=== PATIENT | male | born 1960 | race Caucasian/White ===

== ENCOUNTER 2022-01-07 01:51 | Emergency (ER) | payer OTHER ==
[2022-01-07 01:57] VITALS: BP 140/85; PULSE 87; RESP 18; TEMP 98.6
--- NOTE | 2022-01-07 02:20 | ED ---
General Adult HPI - General Chief complaint: Psychiatric Symptoms Stated complaint: mental health Time Seen by Provider: 01/07/22 02:05 Source: patient, EMS, RN notes reviewed, old records reviewed Mode of arrival: EMS Limitations: no limitations - History of Present Illness Initial comments: 61-year-old male presenting for evaluation. Patient was transported from [facility] for evaluation of hallucination per patient denies having any hallucination. He is alert and oriented 3. He's calm and cooperative. He's been sober for the past 5 days he states that he's having minimal withdrawal symptoms. Patient has no physical complaints. No suicidal or homicidal ideation. No auditory or visual hallucinations. Thought processes are clear. - Related Data Allergies Allergy/AdvReac Type Severity Reaction Status Date / Time No Known Allergies Allergy Verified 01/07/22 01:57 Review of Systems ROS Statement: Those systems with pertinent positive or pertinent negative responses have been documented in the HPI. ROS Other: All systems not noted in ROS Statement are negative. Past Medical History Past Medical History: Hyperlipidemia, Hypertension Additional Past Medical History / Comment(s): hernaited disc in lower lumbar, torn tendon in hip Past Alcohol Use History: Abuse General Exam Limitations: no limitations General appearance: alert, in no apparent distress Head exam: Present: atraumatic, normocephalic Eye exam: Present: normal appearance, PERRL ENT exam: Present: normal exam Neck exam: Present: normal inspection. Absent: tenderness, meningismus Respiratory exam: Present: normal lung sounds bilaterally. Absent: respiratory distress, wheezes Cardiovascular Exam: Present: regular rate, normal rhythm GI/Abdominal exam: Present: soft, distended. Absent: tenderness, guarding Extremities exam: Present: normal inspection, normal capillary refill. Absent: pedal edema Neurological exam: Present: alert, oriented X3, CN II-XII intact. Absent: motor sensory deficit Psychiatric exam: Present: normal affect, normal mood, other (Agent does not seem to be responded to any internal stimuli.). Absent: depressed, agitated, anxious, homicidal ideation, suicidal ideation Skin exam: Present: warm, dry, intact Course Vital Signs 01/07/22 01:53 Temperature 98.6 F Pulse Rate 87 Respiratory 18 Rate Blood Pressure 140/85 O2 Sat by Pulse 99 Oximetry Medical Decision Making - Medical Decision Making 61-year-old male brought from [place] for evaluation of hallucinations. Patient is alert and oriented. He is calm and cooperative. He's asymptomatic. He does not appear to be withdrawing from alcohol is vital signs are stable. He does not have suicidal or homicidal ideation. He is not seem to be responding to any internal stimuli. Stable for discharge at this time. Disposition Clinical Impression: History of alcohol use disorder Disposition: HOME SELF-CARE Condition: Fair Is patient prescribed a controlled substance at d/c from ED?: No Referrals: Jr Salinas MD [Primary Care Provider] - 1-2 days Time of Disposition: 02:20
== END 2022-01-07 02:50 | disposition home or self-care (01) ==
LOC: EC 01:51
DX: F10.21 Alcohol dependence, in remission (principal); I10 Essential (primary) hypertension; E78.5 Hyperlipidemia, unspecified
CPT/HCPCS: 99284